=== PATIENT | female | born 1985 | race Caucasian/White ===

== ENCOUNTER → 2020-09-13 17:47 | Observation (INO) ==
[2020-09-13 15:41] LABS: Basophils % 0.4 %; Eosinophils % 0.5 %; Hematocrit 37.8 % (35.3-44.9); Immature Granulocytes % 0.6 % (0-4); Lymphocytes # 1.7 K/mcL (0.6-4.6); Lymphocytes % 20.2 %; Mean Corpuscular HGB Conc 31.7 g/dL (31.6-35.5); Mean Corpuscular Hemoglobin 27.7 pg (28.0-33.3); Mean Corpuscular Volume 87.3 fL (83.0-100.0); Mean Platelet Volume 12.6 fL (9.4-12.4); Monocytes # 0.9 K/mcL (0.0-1.3); Monocytes % 10.6 %; Neutrophils # 5.5 K/mcL (1.6-8.9); Platelet Count 170 K/mcL (140-400); Red Blood Count 4.33 M/mcL (3.82-4.97); Red Cell Distribution Width 14.4 % (11.5-14.5); Segmented Neutrophils % 67.7 %; White Blood Count 8.2 K/mcL (4.3-11.1)
[2020-09-13 15:52] LABS: Protein/Creatinine Ratio,Urine 0.14 mg/mg (0.00-0.20)
[2020-09-13 15:59] LABS: Alanine Aminotransferase 12 Units/L (7-52); Aspartate Amino Transferase 18 Units/L (13-39); BUN/Creatinine Ratio 15 (6-26); Blood Urea Nitrogen 12 mg/dL (6-20); Lactate Dehydrogenase 147 Units/L (140-271); Uric Acid 5.2 mg/dL (2.3-7.6); eGFR For African Americans > 60 (> 60); eGFR For Non-African Americans > 60 (> 60)
[~2020-09-13 17:47] MED LIST: Ringers Solution, Lactated 1,000 ML IVC SCH; Ringers Solution, Lactated 1,000 ML ONE
== END | disposition home or self-care (01) ==
LOC: 1NENULAB
PROVIDERS: ADMIT Obstetrics & Gynecology; ATTEND Obstetrics & Gynecology

== ENCOUNTER 2020-09-22 21:00 | Inpatient (IN) ==
[~2020-09-22 21:00] MED LIST changes: +*HR* FentaNYL (PF) 100 MCG/2 ML VIAL IVP PRN; +Famotidine 20 MG/2 ML VIAL IVP PRN; +Metoclopramide 10 MG/2 ML VIAL IVP PRN; +Naloxone 0.4 MG/ML INJ IVP PRN; +Ondansetron 4 MG/2 ML VIAL IVP PRN; +Oxytocin 20 units/ LR 1000 mL 20 UNIT/1,000 ML BAG IVC SCH; -Ringers Solution, Lactated 1,000 ML ONE
[2020-09-22 21:40] LABS: Basophils % 0.3 %; Eosinophils % 0.4 %; Hematocrit 37.7 % (35.3-44.9); Hemoglobin 12.4 g/dL (11.5-15.4); Immature Granulocytes % 0.4 % (0-4); Lymphocytes # 1.4 K/mcL (0.6-4.6); Lymphocytes % 15.1 %; Mean Corpuscular HGB Conc 32.9 g/dL (31.6-35.5); Mean Corpuscular Hemoglobin 28.7 pg (28.0-33.3); Mean Corpuscular Volume 87.3 fL (83.0-100.0); Mean Platelet Volume 12.2 fL (9.4-12.4); Monocytes # 0.8 K/mcL (0.0-1.3); Monocytes % 8.2 %; Neutrophils # 6.9 K/mcL (1.6-8.9); Platelet Count 170 K/mcL (140-400); Red Blood Count 4.32 M/mcL (3.82-4.97); Red Cell Distribution Width 14.5 % (11.5-14.5); Segmented Neutrophils % 75.6 %; White Blood Count 9.2 K/mcL (4.3-11.1)
[2020-09-22 21:46] LABS: Amphetamine Screen,Urine Negative ng/mL (Cutoff=1000); Barbiturate Screen,Urine Negative ng/mL (Cutoff=200); Benzodiazepines Screen,Urine Negative ng/mL (Cutoff=200); Cannabinoid Screen,Urine Negative ng/mL (Cutoff = 50); Cocaine Screen,Urine Negative ng/mL (Cutoff= 300); Opiate Screen,Urine Negative ng/mL (Cutoff=300); Phencyclidine Screen,Urine Negative ng/mL (Cutoff=25)
[2020-09-22 21:57] LABS: Alanine Aminotransferase 12 Units/L (7-52); Aspartate Amino Transferase 17 Units/L (13-39); BUN/Creatinine Ratio 17 (6-26); Blood Urea Nitrogen 12 mg/dL (6-20); Lactate Dehydrogenase 133 Units/L (140-271); eGFR For African Americans > 60 (> 60); eGFR For Non-African Americans > 60 (> 60)
[2020-09-22 22:17] LABS: Creatinine,Urine 33 mg/dL
[2020-09-22] MEDS ORDERED: EPHEDrine 50 MG/ML VIAL IVP PRN (23:27)
[2020-09-22] MEDS ORDERED: Epidural Premix (fent/bupiv) 110 ML EP SCH (23:30)
[2020-09-23] MEDS ORDERED: Dexamethasone 4 MG/ML VIAL ONE (01:31)
[2020-09-23] MEDS ORDERED: Ondansetron 4 MG/2 ML VIAL ONE (01:31)
[2020-09-23] MEDS ORDERED: Lidocaine/EPI 1:200k 2% PF 20 ML VIAL ONE (01:32)
[2020-09-23] MEDS ORDERED: Ketorolac 30 MG/ML VIAL ONE (01:33)
[2020-09-23] MEDS ORDERED: Acetaminophen IV 1,000 MG/100 ML BAG IVPB ONE (01:44)
[2020-09-23] MEDS ORDERED: EPHEDrine 50 MG/ML VIAL ONE (01:48)
[2020-09-23] MEDS ORDERED: *HR* OxyCODONE/APAP 5/325 TABLET PO PRN (01:53)
[2020-09-23] MEDS ORDERED: Ondansetron 4 MG/2 ML VIAL IVP PRN ×2 (01:53→05:25)
[2020-09-23] MEDS ORDERED: *HR* HYDROmorphone (PF) 1 MG/ML SYRINGE IVP PRN (01:53)
[2020-09-23] MEDS ORDERED: Ibuprofen 400 MG TABLET PO PRN (01:53)
[2020-09-23] MEDS ORDERED: Rho Immune Globulin 1,500 UNIT SYRINGE IM ONE ×2 (05:25→11:21)
[2020-09-23] MEDS ORDERED: Oxytocin 20 units/ LR 1000 mL 20 UNIT/1,000 ML BAG IVC SCH (05:25)
[2020-09-23] MEDS ORDERED: Ringers Solution, Lactated 1,000 ML IVC SCH (05:25)
[2020-09-23] MEDS ORDERED: Metoclopramide 10 MG/2 ML VIAL IVP PRN (05:25)
[2020-09-23] MEDS ORDERED: Sennosides 8.6 MG TABLET PO PRN (05:25)
[2020-09-23] MEDS: Ibuprofen 600 MG TABLET PO PRN ×3 (08:49→20:19)
[2020-09-23] MEDS: Prenatal Vit/FA 1 EACH TABLET PO SCH (09:26)
[2020-09-23] MEDS: metroNIDAZOLE 500 MG TABLET PO SCH ×3 (09:27→20:22)
[2020-09-23] MEDS: cephALEXin 500 MG CAPSULE PO SCH ×3 (09:28→20:20)
[2020-09-23] MEDS: Simethicone 80 MG TAB.CHEW PO PRN (13:03)
[2020-09-23] MEDS: *HR* OxyCODONE/APAP 5/325 TABLET PO PRN ×3 (14:46→22:33)
[2020-09-24] MEDS: Ibuprofen 600 MG TABLET PO PRN ×4 (02:50→20:26)
[2020-09-24] MEDS: *HR* OxyCODONE/APAP 5/325 TABLET PO PRN ×6 (02:50→22:22)
[2020-09-24 05:02] LABS: Basophils % 0.4 %; Eosinophils % 0.3 %; Hematocrit 25.1 % (35.3-44.9); Immature Granulocytes % 0.8 % (0-4); Lymphocytes # 1.5 K/mcL (0.6-4.6); Lymphocytes % 15.1 %; Mean Corpuscular HGB Conc 31.9 g/dL (31.6-35.5); Mean Corpuscular Hemoglobin 28.3 pg (28.0-33.3); Mean Corpuscular Volume 88.7 fL (83.0-100.0); Mean Platelet Volume 11.8 fL (9.4-12.4); Monocytes # 0.7 K/mcL (0.0-1.3); Monocytes % 7.1 %; Neutrophils # 7.5 K/mcL (1.6-8.9); Platelet Count 146 K/mcL (140-400); Red Blood Count 2.83 M/mcL (3.82-4.97); Red Cell Distribution Width 14.8 % (11.5-14.5); Segmented Neutrophils % 76.3 %; White Blood Count 9.8 K/mcL (4.3-11.1)
[2020-09-24] MEDS: Prenatal Vit/FA 1 EACH TABLET PO SCH (07:55)
[2020-09-24] MEDS: cephALEXin 500 MG CAPSULE PO SCH ×3 (07:55→20:25)
[2020-09-24] MEDS: metroNIDAZOLE 500 MG TABLET PO SCH ×3 (07:55→20:25)
[2020-09-24] MEDS: Simethicone 80 MG TAB.CHEW PO PRN ×3 (09:14→20:24)
[2020-09-25] MEDS: *HR* OxyCODONE/APAP 5/325 TABLET PO PRN ×2 (02:36→06:20)
[2020-09-25] MEDS: Ibuprofen 600 MG TABLET PO PRN ×2 (02:38→08:43)
[2020-09-25 07:52] VITALS: BP 122/73
[2020-09-25] MEDS: Simethicone 80 MG TAB.CHEW PO PRN (08:41)
[2020-09-25] MEDS: Prenatal Vit/FA 1 EACH TABLET PO SCH (08:41)
== END 2020-09-25 12:12 | disposition home or self-care (01) ==
LOC: 1NENULAB → 1NENUOBS 09-23 05:25
PROVIDERS: ADMIT Student in an Organized Health Care Education/Training Program; ATTEND Student in an Organized Health Care Education/Training Program